=== PATIENT | male | born 1985 | race Caucasian/White ===

== ENCOUNTER 2022-04-26 16:19 | Emergency (ER) | payer BC, OTHER ==
[2022-04-26] MEDS ORDERED: Boostrix 0.5 ML (Tdap) VIAL (>/=7 yrs of age) ONE (16:45)
[2022-04-26] MEDS ORDERED: Lidocaine 1% MPF 2 ML VIAL ONE (16:45)
== END 2022-04-26 18:06 | disposition home or self-care (01) ==
LOC: ERS 16:19
DX: S01.21XA Laceration without foreign body of nose, initial encounter (principal); F17.210 Nicotine dependence, cigarettes, uncomplicated; Z23 Encounter for immunization; W26.8XXA Contact with other sharp object(s), not elsewhere classified, initial encounter
CPT/HCPCS: 12011; 90471; 90715